=== PATIENT | female | born 1960 | race Caucasian/White ===

== ENCOUNTER 2018-10-29 16:54 | Emergency (ER) | payer SELFPAY ==
[~2018-10-29] VITALS: Ht 167.6 cm; Wt 63.5 kg
--- NOTE | 2018-10-29 18:00 | NUR ---
PT IN THE WAITING ROOM ADVISED ABOUT LONG WAIT TIME.
[2018-10-29 18:17] VITALS: BP 133/79
== END 2018-10-29 18:22 | disposition left against medical advice (07) ==
LOC: ER 16:57
DX: Z53.21 Procedure and treatment not carried out due to patient leaving prior to being seen by health care provider (principal); E03.8 Other specified hypothyroidism